=== PATIENT | female | born 1995 | race Caucasian/White ===

== ENCOUNTER 2025-03-04 09:09 | Emergency (ER) | payer MEDICAID ==
[~2025-03-04] VITALS: Ht 172.7 cm; Wt 132.0 kg
[2025-03-04 09:15] VITALS: O2SAT 98
[2025-03-04 09:22] VITALS: BP 133/89; PULSE 88; RESP 20; TEMP 36.9; O2SAT 98
[2025-03-04 10:33] LABS: CLARITY URINE CLOUDY (CLEAR); COLOR URINE YELLOW (YELLOW); GLUCOSE URINE NEGATIVE (NEGATIVE); KETONES URINE TRACE (NEGATIVE); LEUKOCYTE ESTERASE URINE 2+ (NEGATIVE); NITRITE URINE POSITIVE (NEGATIVE); OCCULT BLOOD URINE 3+ (NEGATIVE); PH URINE 6.0 (4.5-8.0); PROTEIN URINE 3+ (NEGATIVE); SPECIFIC GRAVITY URINE 1.019 (1.005-1.030); UROBILINOGEN URINE 1.0 E.U./dL (0.2-1.0)
[2025-03-04 10:51] LABS: BACTERIA URINE 3+; RBC URINE TNTC /hpf (0-2); SQUAMOUS EPITHELIAL CELL URINE 2+ /lpf (RARE/1+); WBC URINE TNTC /hpf (0-2); YEAST URINE NONE SEEN
[2025-03-04] MEDS ORDERED: NITR-87 MT (11:00)
[2025-03-04] MEDS ORDERED: PYR200 MT (11:00)
[2025-03-04] MEDS: NITROFURANTOIN 100MG M/M CAPSULE PO STA (11:12)
[2025-03-04] MEDS: PHENAZOPYRIDINE HCL 100MG TABLET PO ONE (11:13)
== END 2025-03-04 11:37 | disposition left against medical advice (07) ==
LOC: ER 09:09
DX: N39.0 Urinary tract infection, site not specified (principal)
CPT/HCPCS: 81003; 81025; 87077; 87186; 99283